=== PATIENT | male | born 1965 | race Caucasian/White ===

== ENCOUNTER 2016-07-29 23:30 | Emergency (ER) | payer MEDICAID ==
[~2016-07-29] VITALS: Ht 167.6 cm; Wt 104.0 kg
[2016-07-29 23:50] VITALS: Ht 167.6 cm; Wt 104.0 kg
[2016-07-30] MEDS ORDERED: DIPHENHYDRAMINE 25 MG CAP PO ONE (01:00)
--- NOTE | 2016-07-30 01:02 | ERD ---
ER Documentation Chief Complaint Date/Time DATE: 07/30/16 TIME: 00:59 Chief Complaint generalize body rash x 1 hour after taking motrin/alkaseltzer. HPI This is a 51-year-old male that presents to the ER with a generalized body consistent with an hour after taking Motrin and Sugar-Poyntelle. Patient took Sugar -Poyntelle as he was experiencing some stomach acid after eating some chili. Patient immediately began to feel itchy and developed a rash. He also started feeling numbness to his lips. Symptoms completely resolved by the time he came to the ER, however he was still worried. Patient denies any shortness of breath or any difficulty in breathing. Patient had never had a reaction like this before. ROS 12 point review of systems was done, all negative except per HPI. Allergies Allergies: Coded Allergies: No Known Drug Allergies (Verified Allergy, Unknown, 07/29/16) PMhx/Soc Medical and Surgical Hx: pt denies Medical Hx History of Surgery: Yes (L foot Fx repair.) Hx Alcohol Use: No Hx Substance Use: No Hx Tobacco Use: No Physical Exam Vitals Vital Signs Date Time Temp Pulse Resp B/P Pulse Ox O2 Delivery O2 Flow Rate FiO2 07/29/16 23:50 97.8 62 20 139/88 97 Physical Exam GENERAL: The patient is well developed and appropriate for usual state of health , in no apparent distress. HEENT: Atraumatic. Conjunctivae are pink. Pupils equal, round, and reactive to light. Extraocular muscles are grossly intact. Bilateral tympanic membranes are clear with no evidence of erythema, effusion or dulling of the light reflex. The oropharynx is clear with no erythema or exudates. No swelling of the lips, tongue, eyes NECK: C-spine is soft and supple. There is no cervical lymphadenopathy. CHEST: Clear to auscultation bilaterally. There are no rales, wheezes or rhonchi. HEART: Regular rate and rhythm. No murmurs, clicks, rubs or gallops. NEURO: Alert and oriented. Cranial nerves II through XII are intact. Motor strength in all 4 extremities with 5/5 strength. Sensation grossly intact. Normal speech and gait. SKIN: There is no apparent rash or petechia. The skin is warm and dry. Results 24 hrs Current Medications Medications (Trade) Dose Ordered Sig/Angus Route PRN Reason Start Time Stop Time Status Last Admin Dose Admin Diphenhydramine HCl (Benadryl) 25 mg ONCE ONCE PO 07/30/16 01:00 07/30/16 01:01 Procedures/MDM This is a 51-year-old male who presents to the ER with a resolved rash and body itching after taking aspirin and ibuprofen patient with a likely had an allergic reaction, however he does not have any signs or symptoms at this time. She does not have any difficulty in breathing does not have any swelling of his face or tongue. Patient will be sent home with Benadryl. He will also be given famotidine for any problems with acid. Patient is to follow-up with his primary care doctor within 1-2 days or return to ER sooner if symptoms worsen. My medical decision making associated with the patient he understands and agrees with plan. Departure Diagnosis: Primary Impression: Allergic reaction Condition: Stable JORGE BENSON Jul 30, 2016 01:02
[2016-07-30] MEDS ORDERED: BEN25 PO (02:35)
[2016-07-30] MEDS ORDERED: FAMO-18 PO (02:35)
[2016-07-30 02:44] VITALS: BP 133/92; PULSE 63; RESP 18
== END 2016-07-30 02:45 | disposition home or self-care (01) ==
LOC: FTE 23:30
DX: R21 Rash and other nonspecific skin eruption (principal); T39.015A Adverse effect of aspirin, initial encounter; T39.315A Adverse effect of propionic acid derivatives, initial encounter; L29.9 Pruritus, unspecified
CPT/HCPCS: 99283